=== PATIENT | female | born 1995 | race Two or more races ===

== ENCOUNTER 2016-10-01 17:45 | Emergency (ER) | payer SELFPAY ==
[~2016-10-01] VITALS: Ht 154.9 cm; Wt 50.8 kg
[2016-10-01 18:13] VITALS: BP 107/61
[2016-10-01] MEDS ORDERED: NKM (18:13)
--- NOTE | 2016-10-01 18:42 | Emergency Room Report ---
History of Present Illness General Chief Complaint: Pain Source: Patient Present Illness HPI 21-year-old female presents emergency department complaining of nausea and vomiting x2 days with intermittent abdominal cramping just prior to vomiting then subsides. Patient denies . Patient denies fevers or chills. Patient denies ill contacts or persons with similar symptoms. Patient denies blood in the vomit patient denies diarrhea, blood in the stool, constipation or black tarry stools. Patient states she has had 2 episodes of vomiting elicited after eating. She denies abdominal tenderness. She denies rashes. Denies CP, Palpitations, LOC, AMS, dizziness, Changes in Vision, Sensation, paresthesias, or a sudden severe headache. Allergies: Coded Allergies: No Known Allergies (Unverified , 10/01/16) Patient History Past Medical History: see triage record Past Surgical History: none Pertinent Family History: none Last Menstrual Period: 09/29/2016 Now: No : 0 Para: 0 Immunizations: UTD Reviewed Nursing Documentation: PMH: Agreed, PSxH: Agreed Nursing Documentation-PMH Past Medical History: No Stated History Review of Systems All Other Systems: negative except mentioned in HPI Physical Exam Vital Signs Date Time Temp Pulse Resp B/P Pulse Ox O2 Delivery O2 Flow Rate FiO2 10/01/16 18:09 98.1 88 16 107/61 99 10/01/16 18:13 Room Air Sp02 EP Interpretation: reviewed, normal General Appearance: no apparent distress, alert, GCS 15, non-toxic Head: normocephalic, atraumatic Eyes: bilateral eye PERRL, bilateral eye normal inspection ENT: hearing grossly normal, normal pharynx, no angioedema, normal voice Neck: full range of motion, supple/symm/no masses Respiratory: chest non-tender, lungs clear, normal breath sounds, speaking full sentences Cardiovascular #1: regular rate, rhythm, no edema Gastrointestinal: normal bowel sounds, non tender, soft, no guarding, no rebound, other - Negative [place] signs, Negative MacBurney's sign, Negative Rosvigns Sign, Negative Psoas, No Peritoneal signs. Rectal: deferred Genitourinary: normal inspection, no CVA tenderness Musculoskeletal: back normal, gait/station normal, normal range of motion, non- tender, no calf tenderness Neurologic: alert, oriented x3, responsive, motor strength/tone normal, sensory intact, speech normal Psychiatric: judgement/insight normal, memory normal, mood/affect normal, no suicidal/homicidal ideation Skin: normal color, no rash, warm/dry, well hydrated Lymphatic: no adenopathy Medical Decision Making PA Attestation Dr. Nixon is my supervising Physician whom patient management has been discussed with. Diagnostic Impression: Primary Impression: Gastritis Qualified Codes: K29.70 - Gastritis, unspecified, without bleeding Additional Impression: Vomiting Qualified Codes: R11.2 - Nausea with vomiting, unspecified ER Course 21-year-old female presents emergency department complaining of nausea and vomiting x2 days with intermittent abdominal cramping. Patient denies . Patient denies fevers or chills. Patient denies ill contacts or persons with similar symptoms. Patient denies blood in the vomit patient denies diarrhea, blood in the stool, constipation or black tarry stools. Patient states she has had 2 episodes of vomiting elicited after eating. She denies abdominal tenderness. She denies rashes. Ddx considered but are not limited to GE, colitis, acute appy, SBO, Vital signs: pt. is afebrile, H&PE are most consistent with GE ORDERS: -UA: WNL /unremarkable -Urine HCG: Negative ED INTERVENTIONS: -4mg PO zofran for nausea. - Pt. able to tolerate oral fluids in ED. stable for close outpatient follow up. d/w pt. to return to ED with worsening or new symptoms, discussed symptoms that would indicate prompt return. DISCHARGE: At this time pt. is stable for d/c to home. Will provide printed patient care instructions, and any necessary prescriptions. Care plan and follow up instructions have been discussed with the patient prior to discharge. Labs Test 10/01/16 18:13 Urine Color Pale yellow Urine Appearance Slightly cloudy Urine pH 8 (4.5-8.0) Urine Specific [place] 1.010 (1.005-1.035) Urine Protein Negative (NEGATIVE) Urine Glucose (UA) Negative (NEGATIVE) Urine Ketones Negative (NEGATIVE) Urine Occult Blood 1+ (NEGATIVE) Urine Nitrite Negative (NEGATIVE) Urine Bilirubin Negative (NEGATIVE) Urine Urobilinogen Normal MG/DL (0.0-1.0) Urine Leukocyte Esterase 2+ (NEGATIVE) Urine RBC 2-4 /HPF (0 - 2) Urine WBC Tntc /HPF (0 - 2) Urine Squamous Epithelial Cells Moderate /LPF (NONE/OCC) Urine Bacteria Many /HPF (NONE) Urine HCG, Qualitative Negative Last Vital Signs Date Time Temp Pulse Resp B/P Pulse Ox O2 Delivery O2 Flow Rate FiO2 10/01/16 18:13 98.1 88 16 107/61 99 Room Air Disposition: HOME, SELF-CARE Condition: Stable Scripts Ranitidine Hcl* (ZANTAC*) 150 Mg Tablet 150 MG ORAL TWICE A DAY for 7 Days, #14 TAB Prov: Liza Quiros 10/01/16 Ondansetron Odt* (ZOFRAN ODT*) 4 Mg Tab.rapdis 4 MG ORAL Q6H Y for Nausea & Vomiting, #30 TAB Prov: Liza Quiros 10/01/16 Referrals: NOT CHOSEN IPA/MD,REFERRING (PCP) Patient Instructions: Gastritis, Adult, [id number], Nausea and Vomiting, Adult, [id number] Additional Instructions: Take medications as directed. Follow up with PCP in 3-5 days Return sooner to ED if new symptoms occur, or current symptoms become worse. - Please note that this Emergency Department Report was dictated using [employer] service associate technology software, occasionally this can lead to erroneous entry secondary to interpretation by the dictation equipment. Liza Quiros Oct 01, 2016 18:42
[2016-10-01 19:38] LABS: APPEARANCE,URINE SLIGHTLY CLOUDY; KETONES,URINE NEGATIVE (NEGATIVE); LEUKOCYTE ESTERASE ,URINE 2+ (NEGATIVE); NITRITE,URINE NEGATIVE (NEGATIVE); PH,URINE 8 (4.5-8.0); PROTEIN,URINE NEGATIVE (NEGATIVE); UROBILINOGEN,URINE NORMAL MG/DL (0.0-1.0)
[2016-10-01] MEDS ORDERED: ZANTAC150 MG ORAL (19:39)
[2016-10-01] MEDS ORDERED: ZOFRAN ODT4 MG ORAL (19:39)
[2016-10-01 19:47] LABS: BACTERIA,URINE MANY /HPF; SQUAMOUS EPITHELIAL CELL,UR MODERATE /LPF (NONE/OCC); WBC,URINE TNTC /HPF (0 - 2)
[2016-10-01 19:55] VITALS: BP 107/61
== END 2016-10-01 19:55 | disposition home or self-care (01) ==
LOC: EMR 18:35
DX: K29.70 Gastritis, unspecified, without bleeding (principal)
CPT/HCPCS: 81003; 81025; 87086; 87181; 99284